=== PATIENT | female | born 1940 | race Caucasian/White ===

== ENCOUNTER 2016-11-20 16:57 | Outpatient (CLI) | payer MEDICARE, BC ==
[2016-11-20 17:07] LABS: Bilirubin Negative (Negative); Blood, Urine Small (Negative); Clarity Clear (Clear); Glucose, Urine (Dipstick) Negative (Negative); Leukocyte Negative (Negative); Nitrite Negative (Negative); Protein, Urine (Dipstick) Negative (Neg-Trace); Urobilinogen 0.2 mg/dL (0.2-1.0); pH, Urine 5.5 (5.0-9.0)
[2016-11-20 17:09] LABS: Specific Gravity, Urine 1.007 (1.002-1.036)
[2016-11-20 17:29] LABS: Bacteria/HPF Rare-Few HPF (None Seen); RBC/HPF 0-3 HPF (0-3); Squamous Epithelial 0-3 HPF (0-3); WBC/HPF None Seen HPF (0-3)
[2016-11-20 17:30] LABS: Other Microscopic Description NO CULTURE PERFORMED
== END 2016-11-20 16:58 | disposition home or self-care (01) ==
LOC: NAV LABSP 16:57
DX: N39.0 Urinary tract infection, site not specified (principal)
CPT/HCPCS: 81001

== ENCOUNTER 2020-11-18 11:49 | Outpatient (CLI) | payer MEDICARE, BC ==
[2020-11-18 12:15] LABS: INR-International Normal Ratio 1.3; Prothrombin Time 16.6 sec (12.0-14.7)
[2020-11-19 15:46] LABS: Follow-up Coag Comp? YES; Follow-up Result - Coag REPORT FAXED
== END 2020-11-18 11:50 | disposition home or self-care (01) ==
LOC: NAV LABSP 11:49
PROVIDERS: ATTEND Internal Medicine Cardiovascular Disease
DX: Z51.81 Encounter for therapeutic drug level monitoring (principal); Z79.01 Long term (current) use of anticoagulants; Z86.711 Personal history of pulmonary embolism
CPT/HCPCS: 36415; 85610

== ENCOUNTER 2022-02-28 19:59 | Emergency (ER) | payer MEDICARE, BC ==
[2022-02-28 20:38] LABS: Prothrombin Time 89.9 sec (12.0-14.7)
[2022-02-28 20:47] LABS: INR-International Normal Ratio 10.8
[2022-02-28] MEDS ORDERED: Phytonadione 10 MG/ML AMP ONE ×2 (20:49→20:53)
[2022-02-28 21:11] LABS: Anion Gap 12 mmol/L (10-20); BUN (Urea Nitrogen) 30 mg/dL (9.8-20.1); Calc. Creatinine Clearance 0 mL/min (70-130); Calcium 7.8 mg/dL (7.8-10.44); Carbon Dioxide 21 mmol/L (23-31); Chloride 103 mmol/L (98-107); Estimated GFR 73; Glucose 132 mg/dL (83-110); Mean Corpuscular HGB CONC 33.7 g/dL (32.0-36.0); Mean Corpuscular Hemoglobin 29.8 pg (27.0-31.0); Mean Corpuscular Volume 88.6 fl (78.0-98.0); Potassium 3.4 mmol/L (3.5-5.1); RBC Distribution Width 14.6 % (11.5-14.5); Red Blood Cell (RBC) Count 3.67 mill/uL (4.20-5.40); Sodium 133 mmol/L (136-145); White Blood Cell (WBC) Count 15.3 10x3/uL (4.8-10.8)
[2022-02-28 21:12] LABS: #Lymphocytes 0.9 thou/uL (1.20-3.40); #Monocytes 0.3 thou/uL (0.11-0.59); #Neutrophils 12.7 thou/uL (1.40-6.50); %Basophils 0.1 % (0.0-1.0); %Eosinophils 0.1 % (0.0-10.0); %Lymphocytes 6.4 % (21.0-51.0); %Monocytes 2.4 % (0.0-10.0); %Neutrophils 91.1 % (42.0-75.0); Mean Platelet Volume 6.4 fL (7.4-10.4); Platelet Count 152 10x3/uL (130-400)
== END 2022-02-28 21:25 | disposition home or self-care (01) ==
LOC: NAV ERS 19:59
DX: R79.1 Abnormal coagulation profile (principal); R04.0 Epistaxis
CPT/HCPCS: 80048; 85025; 85610; 99283; J3430